=== PATIENT | female | born 1970 | race Caucasian/White ===

== ENCOUNTER 2025-01-19 11:40 | Emergency (ER) | payer OTHER, SELFPAY ==
--- OUTSIDE RECORDS SUMMARY | 2020-03-06 11:15 | XMS_ITS | Continuity of Care Document ---
Author Organization [facility] Address [address] [place] [address] Phone Care Team Providers Care Manager Water Name Role Phone Gee Wright MD Unavailable Unavailable Procedures Procedure Date INJECTION ANESTHETIC AND/OR STERIOD, TRANS EPIDURAL LUMB OR SACRAL,, SINGLE LEVE SURGICAL TRAY LOW OSMOLAR CONTRAST (200 TO 299 MG IODI NE) DEPO-MEDROL 80MG Advance Directives Directive Yes / No Effective Date File Name No Information Encounters Encounter Description Practice Location Reason(s) For Visit Diagnoses Date Provider Providers Copied on Encounter [facility], [address], [place], [place], [id number], [place] tel:[phone] [facility] No Information Kyle Flynn. [address] , [place], [place], [id number], [place]. tel:[phone] Referring Provider: Godfrey Nolasco DO, [address], [place], [address]. tel:[phone] Family History Family Member Type Diagnosis Age At Onset No Information Payers Payer name Insurance type Covered constitution party ID Authorbiancaa tiedwar(s) [facility] [id number] Social History Type Description Quantity Date Captured Comments Sex Female Smoking Status No Information Chief Complaint And Reason For Visit No Information Reason For Referral Reason For Referral No Information History Of Present Illness Encounter Date Complaint History Of Prese nt Illness No Information Functional Status Date Functional Assessmen t No Information Instructions Date Instruction Additional Infor mation No Information Assessments Type Assessment Date No Information Patient Care Teams Name Effective Dates (start - stop) Status Members No Information
--- OUTSIDE RECORDS SUMMARY | 2023-10-07 16:30 | XMS_ITS ---
Author Organization [facility] ([address]) Address [address] [place] [address] Care Team Providers Care Fiber Optic Central Office Installer Name Role Phone Nubia Burton Primary Care Provider Unavailab le Hannah Dickson Unavailable [phone] ZZ-Migration, Provider Unavailable Unavailab le Allergies Allergen (clinical drug ingredient) Drug/Non Drug Allergy documented on EMR Reaction Allergy Type Onset Date Status hydrocodone HYDRO-CODONE (uncoded) same as above Allergy Active TYLENOL WITH CODEINE (uncoded) same as above Allergy Active acetaminophen / oxycodone Percocet red rash, severe itching Drug Allergy Active tramadol traMADol same as above Drug Allergy Act rodger REASON FOR VISIT [facility] Conversion Encounter Medications Medication SIG (Take, Route, Frequency, Duration) Notes Start Date End Date Status NEBULIZER SET UP -ADULT *Please review for potential replacement for e-prescription and drug interaction check* Active predniSONE 20 MG call md for instructions orally Call MD for frequency; Duration: 30 day(s) Active NASAL WASHES N/A DIRECTED INTRANASALLY NEEDED; Duration: 90 DAYS *Please review for potential replacement for e-prescription and drug interaction check* Active EpiPen 2-Case 0.3 MG/0.3ML 0.3 mg intramuscularly once; Duration: 1 dose(s) Active PROAIR HFA 90 MCG/INH 2 PUFF(S) INHALED 4 TIMES A DAY *Please review for potential replacement for e-prescription and drug interaction check* Active Ipratropium [place] 0.06 % 2 spray(s) intranasally 4 times a day Active Azelastine HCl 137 MCG/SPRAY 2 spray(s) intranasally 2 times a day; Duration: 90 days Not-Taking Advair HFA 230-21 MCG/ACT 2 puff(s) inhaled 2 times a day; Duration: 90 days Active Singulair 10 MG 1 tab(s) orally once a day; Duration: 90 days Active Advair Diskus 500 MCG-50 MCG 1 PUFF(S) INHALED 2 TIMES A DAY *Please review and pick correct strength-formulat ion from [facility] options. If intended option is not shown, discontinue and re-order from Quick Search* Not-Taking Encounters Encounter Location Date Provider Diagnosis KEVIN Santana [address] [place] [address] [place] [address] 10/07/2023 Provider Yamini Moderate persistent asthma, uncomplicated J45.40 ; Allergic rhinitis due to pollen J30.1 and Bee allergy status Z91.030 Assessments Encounter Date Diagnosis (ICD Code) Assessment Notes Treatment Notes Treatment Clinical Notes Section Notes 10/07/2023 Moderate persistent asthma, uncomplicated (ICD-10 - J45.40) 10/07/2023 Allergic rhinitis due to pollen (ICD-10 - J30.1) 10/07/2023 Bee allergy status (ICD-10 - Z91.030) Plan Of Treatment Medication Medication Name Sig Start Date Stop Date Notes NEBULIZER SET UP -ADULT *Please review f or potential replacement for e-prescription and drug interaction check* predniSONE 20 MG call md for instruct ions orally Call MD for frequency; Duration: 30 day(s) NASAL WASHES N/A DIRECTED INTRANAS ALLY NEEDED; Duration: 90 DAYS *Please review for potential replacement for e-prescription and drug interaction check* EpiPen 2-Case 0.3 MG/0.3ML 0.3 mg intramuscularly once; Duration: 1 dose(s) PROAIR HFA 90 MCG/INH 2 PUFF(S) INHALED 4 TIMES A DAY *Please review for potential replacement for e-prescription and drug interaction check* Ipratropium [place] 0.06 % 2 spray(s) intranasally 4 times a day Advair HFA 230-21 MCG/ACT 2 puff(s) inhaled 2 times a day; Duration: 90 days Singulair 10 MG 1 tab(s) orally once a day; Duration: 90 days Progress Notes * Carlos WALLACE EDOB:1970 (54 yo F)Acc No.[id number]:10/07/2023 Patient: Carlos CANTRELL Provider: Kymberly Martinez :1970 A ge:53 Y S ex:Female Date:10/07/2023 Address:[address] [place], [place] [id number] Pcp:Nubia Burton Subjective: * Chief Complaints: * 1 . [facility] To [facility] Conversion Encounter. * Medical History: * Medications: N ot-Taking/PRN Advair Diskus 500 MCG-50 MCG POWDER 1 PUFF(S) INHALED 2 TIMES A DAY , Notes to Pharmacist: *Please review and pick [facility]. If intended option is not shown, discontinue and re-order from Quick Search*, Not-Taking/PRN Azelastine HCl 137 MCG/SPRAY Solution 2 spray(s) intranasally 2 times a day * Allergies: P ercocet: red rash, severe itching, traMADol: same as above, HYDRO-CODONE: same as above, TYLENOL WITH CODEINE: same as above. Objective: * Vitals: Assessment: * Assessment: 1. M oderate persistent asthma, uncomplicated - J45.40 (Primary) 2 . A llergic rhinitis due to pollen - J30.1 3 . B ee allergy status - Z91.030 ? Plan: * Treatment: 2. A llergic rhinitis due to pollen Start NASAL WASHES 1 QUART OF STERILIZED TAP WATER OR DISTILLED WATER, 1 TSP NACL, 1 PINCH OF BAKING SODA, N/A, DIRECTED, INTRANASALLY, NEEDED, 90 DAYS, 3, Refills 0, Notes to Pharmacist: *Please review for potential replacement for e-prescription and drug interaction check*; C ontinue Ipratropium [place] Solution, 0.06 %, 2 spray(s), intranasally, 4 times a day. 3. B ee allergy status Start EpiPen 2-Case Solution Auto-injector, 0.3 MG/0.3ML, 0.3 mg, intramuscularly, once, 1 dose(s), 1, Refills 0. * Billing Information: * Visit Code: * Procedure Codes: * Electronic signature of Prov edisr ZZ-Migration on 01/19/2025 at 11:44 AM CDT Sign off status: Pending * Provider: Kymberly deluca Migration Date: 0 10/07/2023 Generated for Christoph cortés/Mary Kay/John on: 0 01/19/2025 11:44 AM CDT
--- OUTSIDE RECORDS SUMMARY | 2025-01-19 11:44 | XMS_ITS | Clinical Summary ---
Author Organization [facility] Address [facility] [place] [address] Care Team Providers Care Roller Skate Assembler Name Role Phone Teresita Delacruz Primary Care Provider [phone] Allergies Active Allergy Reactions Criticality Noted Date Comments Bee Venom Anaphylaxis High 02/08/2020 Cinnamon Anaphylaxis High 02/08/2020 Iodine Rash,Swelling Low 03/29/2017 Oxycodone Rash,Swelling Low 03/29/2017 Allergy to percocet Strawberries Rash Medium 02/08/2020 Tramadol Rash,Itching Low 11/16/2020 Medications PARoxetine (PAXIL) 10 MG tablet 05/18/2022 Active isosorbide mononitrate ER (IMDUR) 30 MG 24 hr tablet Take 1 tablet (30 mg total) by mouth daily. 04/10/2023 Active ASPIRIN LOW DOSE 81 MG tablet Take 1 tablet (81 mg total) by mouth daily. 01/25/2023 Active famotidine (PEPCID) 20 MG tablet Take 1 tablet (20 mg total) by mouth 2 (two) times daily. 15 tablet 04/16/2024 Active Active Problems No known active problems Immunizations Immunization Administration Dates Next Due Dtap (Acel-Immune) 09/22/2016 H1N1 Intranasal 2009 Influenza 02/24/2009 Hepatitis A (Havrix 1440 El.U) 06/30/2016 Hepatitis B (Generic: Adult) 07/23/2010,08/29/19 10,2009 Influenza (Generic) 07/23/2010 MMR (MMRII) 08/28/2009,2009,10/10/1972 Pneumococcal (Pneumovax 23) 09/30/2011 Tdap (Generic) 07/20/2009 Typhoid (Typhim ) 07/04/2016 Family History Medical History Relation Comments Heart Disease Father Stroke Father Cancer Mother Relation Status Comments Brother Alive Daughter Alive Father Alive Mother Alive non hodgkins lym phoma Son Alive Social History Tobacco Use Types Packs/Day Years Used Date Smoking Tobacco: Never Smokeless Tobacco: Never Tobacco Cessation:Counseling Given: No Alcohol Use Standard Drinks/Week Comments Yes 0 (1 standard drink = 0.6 oz pur e alcohol) infrequent glass of wine Comments No Sex and Gender Information Value Date Recorded Sex Assigned at Not on file Legal Sex Female 7:35 PM CDT Gender Identity Not on file Sexual Orientation Not on file Last Filed Vital Signs Vital Sign Reading Time Taken Comments Blood Pressure 150/88 04/17/2024 12:36 AM LABORER PIPELINE Pulse 88 04/17/2024 12:36 AM LABORER PIPELINE Temperature 36.1 C (96.9 F) 04/17/2024 12:36 AM LABORER PIPELINE Respiratory Rate 18 04/17/2024 12:36 AM LABORER PIPELINE Oxygen Saturation 100% 04/17/2024 12:36 AM LABORER PIPELINE Inhaled Oxygen Concentration - - Weight 89.4 kg (197 lb) 04/16/2024 10:20 PM LABORER PIPELINE Height 180.3 cm (5' 11) 04/16/2024 10:20 PM LABORER PIPELINE Body Mass Index 27.48 04/16/2024 10:20 PM LABORER PIPELINE Plan of Treatment Health Maintenance Due Date Last Done Comments Colorectal Cancer Screening Colonoscopy (10 Years) 1971 Annual Physical 07/28/1974 Hepatitis C 07/28/1989 Pneumococcal Vaccine: 50+ Years (2 of 2 - PCV) 07/28/2021 09/30/2011 Zoster Vaccines (1 of 2) 07/28/2021 PHQ-2 (Physician Navajo) 04/24/2024 COVID-19 Vaccine (1 - 2023-2 5 season) 2024 Mammogram Screening 10/16/2025 10/17/2023 DTaP, Tdap and Td Vaccines ( 3 - Td or Tdap) 09/22/2026 09/22/2016, 07/20/2009 Hepatitis B Vaccines Completed 07/23/2010, 08/28/2009, 2009 Meningococcal B Vaccine Aged Out No l onger eligible based on patient's age to complete this topic Meningococcal Vaccine Aged Out No kings nehemiah eligible based on patient's age to complete this topic RSV Immunizations Under 20 Months Aged Out No longer eligible b ased on patient's age to complete this topic Insurance [facility] Care Teams Roller Skate Assembler Relationship Specialty Start Date End Date Teresita Delacruz PA [address] [place] [address] PCP - General FAMILY PRACTICE 06/17/19
--- OUTSIDE RECORDS SUMMARY | 2025-01-19 11:44 | XMS_ITS | Encounter Summary ---
Author Organization [facility] Address [address] [place] [address] Care Team Providers Care Green Pipefitter Name Role Phone Stanislav Montalvo MD Unavailable [phone] Arturo Gross MD Unavailable [phone] Dinorah Jason Primary Care Provider [phone] Alexandru Archuleta MD Unavailable [phone] Encounter Details Date Type Department Care Team (Latest Contact Info) Description 11/24/2024 Results Follow-Up [facility] [place] [place] [facility] [address] [place] [address] [place] [address] [place] [address] Dexa Axial Skeleton Bone Density 1 or 2 Site Social History Tobacco Use Types Packs/Day Years Used Date Smoking Tobacco: Never Smokeless Tobacco: Never Alcohol Use Standard Drinks/Week Comments Yes 0 (1 standard drink = 0.6 oz pur e alcohol) [facility] Utilities Answer Date Recorded In the past 12 months has Alek[employer], gas, oil, or water [email or web address] threatened to shut off services in your home? No 09/05/2024 Social Connection and Isolation Panel Answer Date Recorded In a typical week, how many times do you talk on the phone with family, friends, or neighbors? More than three times a week 09/05/2024 How often do you get togethe r with friends or relatives? More than three times a week 09/05/2024 How often do you attend chur ch or quaker services? Never 09/05/2024 Do you belong to any clubs o r organizations such as worship groups, unions, fraternal or athletic groups, or school groups? No 09/05/2024 How often do you attend meet ings of the clubs or organizations you belong to? Never 09/05/2024 Are you , , di vorced, , never , or living with a partner? Living with partner 09/05/2024 AUDIT-C Answer Date Recorded Q1: How often do you have a drink containing alc ohol? Monthly or less 10/11/2022 Q2: How many drinks containi ng alcohol do you have on a typical day when you are drinking? 1 or 2 10/11/2022 Q3: How often do you have si x or more drinks on one occasion? Never 10/11/2022 Overall Financial Resource Strain (CARDIA) Answe r Date Recorded How hard is it for you to pa y for the very basics like food, housing, medical care, and heating? Not very hard 09/05/2024 PHQ-2 Answer Date Recorded PHQ-2 Total Score (If total score is 3 or more points, staff should administer the PHQ-9) 0 11/15/2024 Hunger Vital Sign Answer Date Recorded Within the past 12 months, y ou worried that your food would run out before you got the money to buy more. Never true 09/06/19 Within the past 12 months, t he food you bought just didn't last and you didn't have money to get more. Never true 09/05/2024 PRAPARE - Transportation Answer Date Re corded In the past 12 months, has l ack of transportation kept you from medical appointments or from getting medications? No 08/22 In the past 12 months, has l ack of transportation kept you from meetings, work, or from getting things needed for daily living? No 09/05/2024 Housing Stability Vital Sign Answer Chago e Recorded In the last 12 months, was t here a time when you were not able to pay the mortgage or rent on time? No 01/25/2023 In the last 12 months, how many places have you lived? 1 01/25/2023 In the last 12 months, was t here a time when you did not have a steady place to sleep or slept in a detention (including now)? No 01/25/2023 PHQ-9 Answer Date Recorded PHQ-9 Total Score 11 09/23/2024 Housing Stability Vital Sign Answer Chago e Recorded In the last 12 months, was t here a time when you were not able to pay the mortgage or rent on time? No 09/05/2024 In the past 12 months, how m any times have you moved where you were living? 0 09/05/2024 At any time in the past [address] [facility], were you homeless or living in a detention (including now)? No 09/05/2024 Personal Safety Answer Date Recorded Have you ever been in or are you currently in a harmful physical or emotional relationship or is someone making you feel afraid or unsafe? 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 Not on file Not on [employer] de[employer] Not on file Not on file No t on file documented as of this encounter Plan of Treatment Not on file documented as of this encounter Visit Diagnoses Not on filedocumented in this encounter Care Teams Green Pipefitter Relationship Specialty Start Date End Date Dinorah Jason PA [address] [place] [address] PCP - General Family Medicine 08/19/24 Stanislav Montalvo MD [address] [place] [address] Consulting Physician Family Medicine 05/08/20 Arturo Gross MD [address] [place] [address] Consulting Physician Cardiovascular Disease 01/25/23 Alexandru Archuleta MD [address] [place] [address] Consulting Physician Rheumatology 01/07/25 documented as of this encounter
--- OUTSIDE RECORDS SUMMARY | 2025-01-19 11:44 | XMS_ITS | Clinical Summary ---
Author Organization [facility] Address [address] [place] [address] Care Team Providers Care Mainspring Winder And Oiler Name Role Phone Haresh Vicente MD, Alfie Fang Primary Care Pr ovider Source Comments [facility],non-owned Affiliates and Associated Physician Practices is amultiple site organization consisting of ambulatory clinics and hospital sitesin [place], [place] and [place]. This disclosure is being madepursuant to the Care Everywhere program and may not contain all information available regarding this patient. Last updated 18.[facility] [email or web address] Allergies Active Allergy Reactions Criticality Noted Date Comments Cinnamon Anaphylaxis High 09/05/2024 Hydrocodone Itching Medium 09/05/2024 Oxycodone-Acetaminophen Itching High 09/05/2024 Medications * Be aware that medications may not be up to date on this document. Alwaysverify current medications with the patient. gabapentin (Neurontin) 300 MG capsule Take 1 (one) capsule by mouth at bedtime Active PARoxetine (Paxil) 40 MG tablet Take 1 (one) tablet by mouth at bedtime Active omeprazole EC (PriLOSEC OTC) 20 MG tablet Take 1 (one) tablet by mouth every morning Active Active Problems Problem Noted Date Diagnosed Date Other fatigue 09/06/2024 Recent skin changes 09/06/2024 Headache, unspecified headache type 09/05/2024 Primary hypertension 09/05/2024 Anxiety 09/05/2024 GERD (gastroesophageal reflux disease) Vitamin D deficiency 09/05/2024 History of CVA with residual deficit 09/05/2024 History of deep vein thrombosis (DVT) during pre gnancy 09/05/2024 Social History Tobacco Use Types Packs/Day Years Used Date Smoking Tobacco: Never Smokeless Tobacco: Never Tobacco Cessation:Counseling Given: Not Answered Alcohol Use Standard Drinks/Week Comments Yes 1 (1 standard drink = 0.6 oz pure alcohol) 1-2 glasses of moscato; once or twice a month AUDIT-C Answer Date Recorded Q1: How often do you have a drink containing alc ohol? 2-4 times a month 09/05/2024 Q2: How many drinks containi ng alcohol do you have on a typical day when you are drinking? 1 or 2 09/05/2024 Q3: How often do you have si x or more drinks on one occasion? Never 09/05/2024 Overall Financial Resource Strain (CARDIA) Answe r Date Recorded How hard is it for you to pa y for the very basics like food, housing, medical care, and heating? Not hard at all 09/05/2024 [facility] - Occupational Stress Questionnaire Answer Date Recorded Do you feel stress - tense, restless, nervous, or anxious, or unable to sleep at night because your mind is troubled all the time - these days? Not at all 09/05/2024 Hunger Vital Sign Answer Date Recorded Within the past 12 months, y ou worried that your food would run out before you got the money to buy more. Never true 09/06/19 25 Within the past 12 months, t he [...] any time in the past 12 m [facility], were you homeless or living in a mcc (including now)? No 09/05/2024 Comments Unknown Sex and Gender Information Value Date Recorded Sex Assigned at Not on file Legal Sex Female 7:53 AM OPENER TENDER Gender Identity Not on file Sexual Orientation Not on file Last Filed Vital Signs Vital Sign Reading Time Taken Comments Blood Pressure 128/74 09/08/2024 1:36 PM CDT Pulse 74 09/08/2024 1:36 PM CDT Temperature 36.8 C (98.2 F) 09/08/2024 1:36 PM CDT Respiratory Rate 18 09/08/2024 1:36 PM CDT Oxygen Saturation 96% 09/08/2024 1:36 PM CDT Inhaled Oxygen Concentration - - Weight 106.3 kg (234 lb 5.6 oz) 09/07/2024 1:00 PM CDT Height 177.8 cm (5' 10) 09/07/2024 1:00 PM CDT Body Mass Index 33.63 09/07/2024 1:00 PM CDT Plan of Treatment Health Maintenance Due Date Last Done Comments COLOGUARD (AGES 45-75) - COL ON CA SCREENING 1970 COLON MONITORING 1971 COLONOSCOPY - COLON CA SCREENING 1971 CT COLONOGRAPHY - COLON CA SCREENING 1970 Colorectal Cancer Screening 1970 FIT - COLON CA SCREENING 1971 FLEX SIG - COLON CA SCREENING 1971 LIPID TESTING 1970 HIV SCREENING 07/28/1986 HEPATITIS C SCREENING 07/24/1989 DTAP/TDAP/TD VACCINES (1 - Tdap) 07/28/1990 HEPATITIS B VACCINE (1 of 3 - 19+ 3-dose series) 07/28/1990 PNEUMOCOCCAL VACCINE 50+ (1 of 1 - PCV) 07/28/2021 ZOSTER VACCINE (1 of 2) 07/28/2021 DEPRESSION SCREENING 04/24/2024 COVID-19 VACCINE (1 - 2023-2 5 season) 2024 INFLUENZA VACCINE (#1) 2024 07/23/2010 MAMMOGRAM 10/16/2025 10/17/2023, 10/17/2023 HIB VACCINE Aged Out No longer eligi ble based on patient's age to complete this topic HPV VACCINE Aged Out No longer eligi ble based on patient's age to complete this topic MENINGOCOCCAL (Group B) VACCINE SHARED DECISION-MAKING Aged Out No longer eligible based on patient's age to complete this topic MENINGOCOCCAL GROUPS A/C/Y/W VACCINE Aged Out No longer eligible b ased on patient's age to complete this topic Insurance [facility] Advance Directives * Full Code (Latest Code Status on File) Date Activated Date Inactivated Comments 09/05/2024 10:28 PM 09/08/2024 5:24 PM Care Teams Mainspring Winder And Oiler Relationship Specialty Start Date End Date Alfie Hutson Jr., MD [address] [address] PCP - General 12/22/08
--- OUTSIDE RECORDS SUMMARY | 2025-01-19 11:44 | XMS_ITS | Encounter Summary ---
Author Organization [facility] Address [address] [place] [address] Care Team Providers Care Sander Wooden Pencils Name Role Phone Teresita Delacruz Primary Care Provider [phone] Encounter Details Date Type Department Care Team (Latest Contact Info) Description 02/27/2018 Abstract [facility] , Mathew Birmingham MD Social History Tobacco Use Types Packs/Day Years Used Date Smoking Tobacco: Never Smokeless Tobacco: Never Alcohol Use Standard Drinks/Week Comments No 0 (1 standard drink = 0.6 oz pur e alcohol) infrequent glass of wine Comments No Sex and Gender Information Value Date Recorded Sex Assigned at Not on file Legal Sex Female 7:35 PM CDT Gender Identity Not on file Sexual Orientation Not on file documented as of this encounter Plan of Treatment Not on file documented as of this encounter Visit Diagnoses Not on filedocumented in this encounter Additional Health Concerns Infection Onset Date Last Indicated Resolved Time COVID-19 Rule Out 04/16/2024 04/16/2024 04/16/2024 11:10 PM COTTON CLASSER AIDE RSV 04/16/2024 04/16/2024 04/26/2024 12:3 3 AM COTTON CLASSER AIDE documented as of this encounter Care Teams Sander Wooden Pencils Relationship Specialty Start Date End Date Teresita Delacruz PA [address] [place] [address] PCP - General FAMILY PRACTICE 06/17/19 documented as of this encounter
--- OUTSIDE RECORDS SUMMARY | 2025-01-19 11:44 | XMS_ITS | Encounter Summary ---
Author Organization [facility] Address [address] [place] [id number] Care Team Providers Care Trackmobile Operator Name Role Phone Teresita Delacruz Primary Care Provider [phone] Encounter Details Date Type Department Care Team (Late st Contact Info) Description 04/18/2024 [employer]Streaming Message [employer] [facility] [employer] [address] [place] [address] Marjorie, [facility] Provider Photograph of updated Photo ID Social History Tobacco Use Types Packs/Day Years [...] Infection Onset Date Last Indicated Resolved Time RSV 04/16/2024 04/16/2024 04/26/2024 12:3 3 AM AUTOMOTIVE WINDOW T[employer] documented as of this encounter Care Teams Trackmobile Operator Relationship Specialty Start Date End Date Teresita Delacruz PA [address] [place] [address] PCP - General FAMILY PRACTICE 06/17/19 documented as of this encounter
--- OUTSIDE RECORDS SUMMARY | 2025-01-19 11:44 | XMS_ITS | Patient Health Record ---
Author Organization [facility] [employer] [place] ([address]) Address [address] [place] [address] Care Team Providers Care Precipitator Name Role Phone Nubia Burton Primary Care Provider Unavailab Hannah Stuart Unavailable [phone] Allergies Allergen (clinical drug ingredient) Drug/Non Drug Allergy documented on EMR Reaction Allergy Type Onset Date Status hydrocodone HYDRO-CODONE (uncoded) same as above Allergy Active TYLENOL WITH CODEINE (uncoded) same as above Allergy Active acetaminophen / oxycodone Percocet red rash, severe itching Drug Allergy Active tramadol traMADol same as above Drug Allergy Act rodger Reason For Referral No Information Medications Medication SIG (Take, Route, Frequency, Duration) Notes Start Date End Date Status EPIPEN 2-CASE 0.3 mg 0.3 mg intramuscularly once; Duration: 1 dose(s) Active PREDNISONE 20 mg call md for instructions orally Call MD for frequency; Duration: 30 day(s) Active EpiPen 2-Case 0.3 MG/0.3ML 0.3 mg intramuscularly once; Duration: 1 dose(s) Active SINGULAIR 10 mg 1 tab(s) orally once a day; Duration: 90 days Active ADVAIR DISKUS 500 mcg-50 mcg 1 puff(s) inhaled 2 times a day Not-Taking IPRATROPIUM NASAL 42 mcg/inh 2 spray(s) intranasally 4 times a day Active Ipratropium Iuka 0.06 % 2 spray(s) intranasally 4 times a day Active AZELASTINE HYDROCHLORIDE NASAL 137 mcg/inh 2 spray(s) intranasally 2 times a day; Duration: 90 days Not-Taking ADVAIR HFA CFC free 230 mcg-21 mcg/inh 2 puff(s) inhaled 2 times a day; Duration: 90 days Active NEBULIZER SET UP -ADULT *Please review for potential replacement for e-prescription and drug interaction check* Active predniSONE 20 MG call md for instructions orally Call MD for frequency; Duration: 30 day(s) Active NASAL WASHES N/A DIRECTED INTRANASALLY NEEDED; Duration: 90 DAYS *Please review for potential replacement for e-prescription and drug interaction check* Active Azelastine HCl 137 MCG/SPRAY 2 spray(s) intranasally 2 times a day; Duration: 90 days Not-Taking Advair HFA 230-21 MCG/ACT 2 puff(s) inhaled 2 times a day; Duration: 90 days Active Singulair 10 MG 1 tab(s) orally once a day; Duration: 90 days Active PROAIR HFA 90 MCG/INH 2 PUFF(S) INHALED 4 TIMES A DAY *Please review for potential replacement for e-prescription and drug interaction check* Active Advair Diskus 500 MCG-50 MCG 1 PUFF(S) INHALED 2 TIMES A DAY *Please review and pick correct strength-formula tion from [employer] options. If intended option is not shown, discontinue and re-order from Quick Search* Not-Taking Immunizations Vaccine Route Administration Date Status Comme nts Hepatitis B (20 and more) Unknown 12/07/2011 Administer ed Portal Information Allergy Immunotherapy Weekly Unknown 09/22/2004 Administered Portal Informati on Hepatitis A Unknown 07/05/2016 Administered Portal Info rmation Influenza Unknown 02/11/2016 Administered Portal Infor mation Social History Tobacco Use: Social History Observation Description Date Details (start date - stop date) Never Smoker NA - NA Smoking Smart Form: Question Answer Notes Are you a: never smoker Problems Problem Type SNOMED Code ICD Code Onset Dates Problem Status W/U Status Risk Notes Problem Chronic allergic conjunctivitis (00205938) Other chronic allergic conjunctivitis (H10.45) Active confirmed Problem Allergic rhinitis caused by pollen (disorder) (74331779) Allergic rhinitis due to pollen (J30.1) Active confirmed Problem Allergic rhinitis (69967129) Other allergic rhinitis (J30.89) Active confirmed Problem Uncomplicated moderate persistent asthma (287146432) Moderate persistent asthma, uncomplicated (J45.40) Active confirmed Problem Allergic rhinitis caused by animal hair and dander (996762059673321) Allergic rhinitis due to animal (cat) (dog) hair and dander (J30.81) Active confirmed Problem Cough (30272840) Cough (R05) Active confirmed Problem Allergy to bee venom (399547498) Bee allergy status (Z91.030) Active confirmed Plan Of Treatment No Information Insurance Providers Payer Name Payer Address Payer Phone Subscriber Number Group Number Insured Name Patient Relationship to Insured Coverage Start Date Coverage End Date [facility] [employer] Claims [address] [place] [address] [phone] [id number] Cyril Flores i Spouse - patient is the spouse of the insured Medical (General) History Medical History History ICD Code Moderate persistent asthma, uncomplicate d J45.40 Allergic rhinitis due to pollen J30.1 Allergic rhinitis due to animal (cat) (d og) hair and dander J30.81 Other allergic rhinitis J30.89 Surgical History Surgery Date(Month/Year) blood clot wrist 02/22/1999 Partial Hysterectomy 02/29/2000 neck fusion 04/24/2006 Facial Surgery/cancer 11/22/2008 Xiphoid area/removed small cancer mass 1 Hospitalization History Reason Date(Month/Year) Asthma exacerbation 09/30/2011 2nd 12/23/1998
--- OUTSIDE RECORDS SUMMARY | 2025-01-19 11:44 | XMS_ITS ---
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 Cervical spondylosis 06/26/2023 Assessment & Plan (09/26/2023 11:55 AM CDT): Improved after receiving injection from Neurosurgery. Continue gabapentin as prescribed. Left ventricular hypertrophy 06/26/2023 Osteoarthritis of knee 06/26/2023 Other seborrheic keratosis 06/26/2023 Uncontrolled hypertension 01/24/2023 Assessment & Plan (08/06/2024 9:52 AM CDT): Orders: losartan-hydroCHLOROthiazide (Hyzaar) 50-12.5 mg per tablet; Take 1 tablet by mouth 2 (two) times a day CBC with auto differential; Future Comprehensive metabolic panel; Future Lipid panel; Future Albumin Creatinine Ratio, Urine; Future Assessment & Plan (04/18/2024 2:31 PM BAG BUNDLER): Chronic, not well-controlled. Patient reports home blood pressure readings has been improved since her losartan/hydrochlorothiazide dose was adjusted. Currently elevated due to illness and recent steroids. Recommend close monitoring, patient will continue home tracking and send us back readings. Assessment & Plan (03/19/2024 8:45 AM BAG BUNDLER): Chronic and uncontrolled. Will add hydrochlorothiazide and switch to twice daily dosing. Now take losartan/hydrochlorothiazide 50/12.5 mg b.i.d.. Side effects discussed. Patient will reach out in 2 weeks with an update on her blood pressure readings. If still elevated will need to add a third agent. She will reach out sooner with any significantly worsening readings or symptoms. Continue to work on healthy low-salt diet. Exercise as tolerated. Patient voiced agreement with this plan. All questions answered today. Schwannoma of nerve of lower extremity 0 Assessment & Plan (05/11/2020 9:08 AM BAG BUNDLER): Patient is seeing Dr. Nolasco (in [place]). Continue follow-up as directed. Continue current management. Assessment & Plan (02/02/2020 9:06 PM CDT): Patient complains of complete numbness and tingling and near paralysis occasionally. Recommend spine consultation. Numbness and tingling of left leg 12/30/2019 Assessment & Plan (02/02/2020 9:06 PM CDT): Schwannoma and disc protrusion noted L5-S1 to the left Assessment & Plan (12/30/2019 6:00 PM CDT): Multiple arthralgias. Numbness down her left leg. Positive low back pain. Recommend MRI. Greater trochanteric bursitis of right hip 12/13 Assessment & Plan (09/26/2023 11:56 AM CDT): Chronic. Continue to follow with orthopedics for injections. Starting physical therapy later this week. Assessment & Plan (05/11/2020 9:07 AM BAG BUNDLER): Continue current management as directed by Orthopedics. Assessment & Plan (12/30/2019 5:59 PM CDT): Had a steroid flare. However, she is improved. Unfortunately having increasing low back pain and now numbness and tingling down the left leg. States she just cannot feel her left leg at all. Assessment & Plan (12/14/2019 9:04 PM CDT): We discussed the risks, benefits and alternatives. Physician directed exercises are given. Continue with nonsteroidal anti-inflammatories. Steroid is injected to the greater trochanter. If this does not give her the relief that she is looking for consider an intra-articular injection into right hip either through pain management or radiology. Femoral acetabular impingement 11/09/2019 Assessment & Plan (12/30/2019 5:59 PM CDT): Positive impingement on exam. Medrol Dosepak, nonsteroidal anti-inflammatory Mobic 15 mg daily. MRI to the lumbar spine. Assessment & Plan (12/14/2019 9:04 PM CDT): Consider injection into the hip joint if greater trochanteric bursa injection does not give her the relief that she is looking for Assessment & Plan (11/09/2019 8:00 PM CDT): Patient has failed conservative therapy consisting of massage, icing, anti-inflammatories as well as narcotic pain medications. Recommend MR arthrogram of the right hip with pre and post provocative testing. Begin meloxicam 15 mg daily. If it does come back with labral tear consider consultation in [place] Mild intermittent asthma without complication Assessment & Plan (09/26/2023 11:56 AM CDT): Chronic and controlled. Patient has inhalers and Singulair which she uses as needed. Continue current management. Assessment & Plan (05/11/2020 9:08 AM BAG BUNDLER): Chronic and well controlled at this time. She has her inhalers to use in the springtime as needed. BMI 27.0-27.9,adult 06/21/2019 Assessment & Plan (05/11/2020 9:07 AM BAG BUNDLER): Reviewed BMI Focus on healthy diet options Work on healthy changes Patient will follow-up with me after seeing Gynecology, as needed, to discuss weight gain. Assessment & Plan (12/14/2019 9:04 PM CDT): We discussed the adverse effects of extra weight on osteoarthritis. The only thing proven to slow the progression of osteoarthritis as weight loss. Every 1 lb lost, relieves 4-6 lb of stress across the knee. Continue weight loss through diet and exercise. Consider low carbohydrate diet. Assessment & Plan (11/09/2019 8:01 PM CDT): We discussed the adverse effects of extra weight on osteoarthritis. The only thing proven to slow the progression of osteoarthritis as weight loss. Every 1 lb lost, relieves 4-6 lb of stress across the knee. Continue weight loss through diet and exercise. Consider low carbohydrate diet. Assessment & Plan (06/21/2019 10:55 AM BAG BUNDLER): BMI Follow-up includes: nutrition counseling and exercise counseling. Chronic right-sided low back pain without sciati ca 11/06/2018 Assessment & Plan (09/26/2023 12:00 PM CDT): Chronic. Followed by orthopedics. Continue with injections and physical therapy as scheduled. Update me with any changes. Assessment & Plan (11/06/2018 11:09 AM CDT): Discussed with patient that this is likely muscular strain. I advised [id number] NSAIDs and ice and heat for pain. I did give her back stretches she can perform at home. If her pain worsens or does not resolve she can return for further management. We can consider physical therapy in the future. Chronic cervical pain 11/06/2018 Overview (11/06/2018): Cervical fusion in 2006 C4-C5 and C5-C6 Assessment & Plan (11/06/2018 11:07 AM CDT): This is stable. Continue current [id number] NSAIDs. Routine adult health maintenance 11/05/2018 Overview (10/24/2023): Health Maintenance: -PCV20: N/A -Tdap vaccine: 2017 -Influenza vaccine: due in Fall -Shingles vaccine: due -Cologuard: 09/2023 -Last WWE: s/p hyst -Last Mammogram: 10/17/23 -Last DEXA: N/A -Last eye exam: N/A -Last MHA: N/A Assessment & Plan (09/26/2023 11:57 AM CDT): Health Maintenance: -PCV20: N/A -Tdap vaccine: 2017 -Influenza vaccine: due in Fall -Shingles vaccine: due -Cologuard: ordered -Last WWE: s/p hyst -Last Mammogram: due, ordered -Last DEXA: N/A -Last eye exam: N/A -Last MHA: N/A Patient due for mammogram and Cologuard, orders placed. Recommend Shingrix, she declined today. Annual labs ordered. Work on healthy diet and exercise habits. Assessment & Plan (05/11/2020 9:10 AM BAG BUNDLER): Health Maintenance: -PCV13 vaccine: N/A -PPSV23 vaccine: N/A -Tdap vaccine: 2017 -Influenza vaccine: due -Shingles vaccine: N/A -Colonoscopy: N/A -Last WWE: 1999 had a partial hysterectomy, scheduled 05/14/20 for WWE -Last Mammogram: due, ordered -Last DEXA: N/A -Last eye exam: N/A -Last MHA: N/A Patient is due for mammogram, this was ordered today. She has a well-woman exam scheduled for this week. She is due for flu shot. Continue with healthy lifestyle and dietary habits. See me annually for routine physicals. Assessment & Plan (11/06/2018 8:17 AM CDT): Health Maintenance: -PCV13 vaccine: N/A -PPSV23 vaccine: N/A -Tdap vaccine: 2017 -Shingles vaccine: N/A -Colonoscopy: N/A -Last WWE: 1999 has a partial hysterectomy, 08/2018 had a pap -Last Mammogram: 2017 -Last DEXA: N/A -Last eye exam: 2015, glasses for distance -Last MHA: N/A Vitamin D deficiency 12/24/2010 Assessment & Plan (05/11/2020 9:09 AM BAG BUNDLER): Patient takes a multivitamin daily. She declines vitamin-D lab test today. Assessment & Plan (11/06/2018 11:06 AM CDT): Continue current management. History of CVA (cerebrovascular accident) 2010 Overview (11/06/2018): At age 31. Description: L hemiparesis, R facial weakness, slurred speech and decreased memory - associated severe headache; syncope. ? embolic - lasted less than 1 hour Assessment & Plan (11/06/2018 11:07 AM CDT): Patient reports her residual left-sided weakness is stable. Continue current management. Non-toxic multinodular goiter 12/23/2010 Assessment & Plan (09/26/2023 11:56 AM CDT): No prior records are available for review. Uncertain if patient was supposed to have follow-up imaging. Will check a TSH today and consider an ultrasound. Assessment & Plan (05/11/2020 9:09 AM BAG BUNDLER): Advised patient to call her histotechnician and find out when she is due for follow-up. Patient voiced understanding. Assessment & Plan (11/06/2018 11:07 AM CDT): Stable. Continue current management. Continue to follow up with endocrinology. Current Treatment and Therapy Plans No current plan information found. Past Treatment and Therapy Plans No past plan information found. Lifetime Dose Tracking * Chemical Lifetime Dose Automatic Entry Manual Entr y Fluoro Time 0.23 minutes 0.23 minutes 0 minutes Air kerma at the reference point (Ka,r) 0.4 mGy 0 .4 mGy 0 mGy Resolved Problems Problem Noted Date Diagnosed Date Resolved Date Abnormal findings on diagnos tic imaging of breast 06/26/2023 09/25/2023 Moderate persistent asthma 06/26/2023 0 09/25/2023 Chest pain, unspecified type 01/24/2023 09/25/2023 Trochanteric bursitis of right hip 12/01/2021 09/26/2023 Pelvic pain in female 12/11/20182019 Vaginal burning 11/06/2018 06/17/2019 Assessment & Plan (11/06/2018 11:12 AM CDT): I discussed with the patient that this can also be evaluated by Gynecology. However, if it is going to be several weeks before she can be seen, then she can make an appointment with me and I can do an exam to test for vaginitis. Patient voiced agreement with this plan. She will schedule an appointment with me if she needs to. Notalgia 10/08/2012 11/06/2018 Bronchial asthma 10/08/2012 06/17/2019 Assessment & Plan (11/06/2018 11:08 AM CDT): Stable. Continue current management. Return to office if she develops wheezing, shortness of breath, cough. Patient is going to call our office with the names of her inhalers so these can be entered into her chart. Abnormal blood chemistry level 12/23/2010 06/17/2019 Overview (08/03/2017): Description: thick blood - predisposition to thrombophlebitis
--- OUTSIDE RECORDS SUMMARY | 2025-01-19 11:45 | XMS_ITS | Clinical Summary ---
Author Organization [address] Address [address] [place] [id number] Care Team Providers Care Marketing Planner Name Role Phone Stanislav Montalvo MD Unavailable [phone] Arturo Gross MD Unavailable [phone] Dinorah Jason Primary Care Provider [phone] Alexandru Archuleta MD Unavailable [phone] Allergies Active Allergy Reactions Criticality Noted Date Comments Bee Venom Protein (Honey Bee) Anaphylaxis High 02/08/2020 Cinnamon Anaphylaxis High 02/08/2020 Insect Venom Anaphylaxis High 02/08/2020 Oxycodone Rash,Swelling Medium 03/29/2017 Allergy to percocet Oxycodone-Acetaminophen Unknown [place] Rash Medium 02/08/2020 Tramadol Venom-Honey Bee Anaphylaxis High 02/08/2020 Wasp Venom Protein Starter Kit Anaphylaxis High 02/08/2020 Medications omeprazole 20 mg tablet,delayed release (DR/EC) Take 1 tablet (20 mg total) by mouth daily Active losartan-hydroCHLO ROthiazide (Hyzaar) 50-12.5 mg per tabletIndications: Hypertension, essential Take 1 tablet by mouth 2 (two) times a day 180 tablet 3 08/07/19 Active Additional Information Patient taking differently:1 tablet oralDaily PRN, if BP remains above 150 systolic, Reported on 11/15/2024 cholecalciferol (VITAMIN D-3) 50,000 unit capsule Take 1 capsule (50,000 Units total) by mouth once a week 12 capsule 08/09/19 25 Active gabapentin (NEURONTIN) 300 mg capsule Take 1 capsule (300 mg total) by mouth nightly Active cyanocobalamin (Vitamin B-12) 1,000 mcg tabletIndications: Prevention of Vitamin B12 Deficiency Take 1 tablet (1,000 mcg total) by mouth daily Active hydrocortisone (CORTEF) 10 mg tablet Take 1 tablet (10 mg total) by mouth 2 (two) times a day 60 tablet 5 09/11/19 25 025 Active ondansetron ODT (ZOFRAN-ODT) 4 mg disintegrating tabletIndications: Nausea Take 1 tablet (4 mg total) by mouth every 8 (eight) hours as needed for nausea or vomiting 20 tablet 1 09/24/19 25 Active tiZANidine (ZANAFLEX) 4 mg tablet TAKE 1 TABLET(4 MG) BY MOUTH EVERY NIGHT NEEDED FOR MUSCLE SPASMS 30 tablet 1 10/23/19 25 Active celecoxib (CeleBREX) 200 mg capsuleIndications :Polyarthralgia,Ac [place] pain of both knees,Acute bilateral ankle pain TAKE 1 CAPSULE(200 MG) BY MOUTH DAILY WITH DINNER 90 capsule 12/19/19 25 Active Active Problems Problem Noted Date Diagnosed Date 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 Patient reports home blood pressure readings has been improved since her losartan/hydrochlorothiazide dose was adjusted. Currently elevated due to illness and recent steroids. Recommend close monitoring, patient will continue home tracking and send us back readings. Assessment & Plan (03/19/2024 8:45 AM SHADOWGRAPH OPERATOR): Chronic and uncontrolled. Will add hydrochlorothiazide and [...] today. Schwannoma of nerve of lower extremity Assessment & Plan (05/11/2020 9:08 AM SHADOWGRAPH OPERATOR): Patient is seeing Dr. Nolasco (in [place]). Continue follow-up as directed. Continue current management. [...] week. Assessment & Plan (05/11/2020 9:07 AM SHADOWGRAPH OPERATOR): Continue current management as directed by Orthopedics. [...] back with labral tear consider consultation in [facility] Mild intermittent asthma without complication Assessment & Plan (09/26/2023 11:56 AM CDT): Chronic and controlled. Patient has inhalers and Singulair which she uses as needed. Continue current management. Assessment & Plan (05/11/2020 9:08 AM SHADOWGRAPH OPERATOR): Chronic and well controlled at this time. She has her inhalers to use in the springtime as needed. BMI 27.0-27.9,adult 06/21/2019 Assessment & Plan (05/11/2020 9:07 AM SHADOWGRAPH OPERATOR): Reviewed BMI Focus on healthy diet options [...] diet. Assessment & Plan (06/21/2019 10:55 AM SHADOWGRAPH OPERATOR): BMI Follow-up includes: nutrition counseling and exercise counseling. Chronic right-sided low back pain without sciati ca 11/06/2018 Assessment & Plan (09/26/2023 12:00 PM CDT): Chronic. Followed by orthopedics. Continue with injections and physical therapy as scheduled. Update me with any changes. Assessment & Plan (11/06/2018 11:09 AM CDT): Discussed with patient that this is likely muscular strain. I advised [id number] NSAIDs and ice and heat for pain. [...] AM CDT): This is stable. Continue current [id number] NSAIDs. Routine adult health maintenance 11/05/2018 Overview [...] habits. Assessment & Plan (05/11/2020 9:10 AM SHADOWGRAPH OPERATOR): Health Maintenance: -PCV13 vaccine: N/A -PPSV23 vaccine: [...] 12/24/2010 Assessment & Plan (05/11/2020 9:09 AM SHADOWGRAPH OPERATOR): Patient takes a multivitamin daily. She declines [...] ultrasound. Assessment & Plan (05/11/2020 9:09 AM SHADOWGRAPH OPERATOR): Advised patient to call her shot bagger and find out when she is due for follow-up. Patient voiced understanding. Assessment & Plan (11/06/2018 11:07 AM CDT): Stable. Continue current management. Continue to follow up with endocrinology. Resolved Problems Problem Noted Date Diagnosed Date [...] Description: thick blood - predisposition to thrombophlebitis Encounters Date Type Department Care Team Description 01/02/[address] [phone] Annmarie Condon 12/30/2024 Letter (Out) [facility] Family Medicine [address] [phone] 12/26/2024 3:00 PM CDT Office Visit [facility] Orthopedics and Sports Medicine [address] [facility] [address] [place] [phone] Nazario Kerr PA Patellofemoral pain syndrome of both knees (Primary Dx); Patellar tendinitis of both knees; Acute pain of both knees 11/24/2024 Results Follow-Up [facility] [address], [place] [address] Sarbjit Wilkerson MD Dexa Axial Skeleton Bone Density 1 or 2 Site 11/15/2024 10:56 AM CDT - 11/15/2024 11:59 PM CDT Hospital Encounter [facility] [address] [place] [address] Acute bilateral ankle pain; Acute pain of both knees Discharge Disposition: Discharge to home or self care 11/15/2024 10:[address] [facility] Lab [address] [place] [address] Polyarthralgia 11/15/2024 10:00 AM CDT Office Visit [facility] [address] [phone] Dinorah Jason PA Polyarthralgia (Primary Dx); Acute pain of both knees; Acute bilateral ankle pain; Chronic right hip pain; Plantar fasciitis, bilateral; Encounter for screening mammogram for malignant neoplasm of breast 11/15/2024 7:27 AM CDT - 11/15/2024 11:59 PM CDT Hospital Encounter [facility] Medical Office Bldg [facility] [address] [facility] [address] [place] [address] Current chronic use of systemic steroids Discharge Disposition: Discharge to home or self care 11/15/2024 Results Follow-Up [facility] [address] [phone] Dinorah Jason PA Rheumatoid factor, XR Knee Bilateral 3 Views, XR Ankle Right 3+ Vw, XR Ankle Left 3+ Vw from Last 3 Months Immunizations Immunization Administration Dates Next Due DTaP 09/22/2016 H1N1 Nasal 02/24/2009 Hep A, Adult 06/30/2016 Hep B Vaccine 07/23/2010,08/28/2009,2009 Influenza, Trivalent, Preser vative Free, Intramuscular 07/23/2010 Influenza, Unspecified 03/19/2024(Deferr ed: Patient Refused),01/22/2023(Deferred: Patient Refused),01/22/2023(Deferred: Patient Refused),01/22/2022(Deferred: Patient Refused),10/28/2021(Deferred: Patient Refused),01/22/2021(Deferred: Patient Refused),07/23/2010 MMR 08/28/2009,2009,10/10/1972 PPD TEST 08/20/2010,2009,07/20/2009 Pneumococcal Polysaccharide PPV23 09/30/2011 Tdap 07/20/2009 Typhoid Inactivated 07/04/2016 Surgical History Surgery Date Site/Laterality Comments OTHER SURGICAL HISTORY cervical spine herniated disks surgery PARTIAL HYSTERECTOMY was told a small piece of the cervix was left OOPHORECTOMY Right SALPINGECTOMY Right FOOT SURGERY 03/29/2018 fracture SKIN SURGERY 03/30/2018 mass removed from back WRIST SURGERY 01/22/1999 - 02/21/1999 blood clot FLUORO GUIDED INJECTION HIP RIGHT 01/04/2021 Right HYSTERECTOMY 02/2000 SPINE SURGERY 04/2006 cervical discectomy and anterior fusion ABDOMINAL SURGERY 01/2019 IR INJECTION ARTHROGRAM SI JOINT RIGHT INCLUDES IMAGING GUIDANCE 03/27/2024 Right IR INJECTION ARTHROGRAM SI JOINT LEFT INCLUDES IMAGING GUIDANCE 03/27/2024 Left Medical History Medical History Date Comments Hx Other Medical cervica . 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 H/o biopsies. F/u with Endocrinology every 5 years. History of CVA (cerebrovascu lar accident) 12/23/2010 At age 31. Description: L he miparesis, R facial weakness, slurred speech and decreased memory - associated severe headache; syncope. ? embolic - lasted less than 1 hour Chronic cervical pain 11/06/2018 Cervical f usion in 2006 C4-C5 and C5-C6 Bronchial asthma 10/08/2012 Abnormal blood chemistry level 12/23/2010 D escription: thick blood - predisposition to thrombophlebitis Basal cell carcinoma Maxillary sinus cancer (HCC) Pelvic pain in female 12/11/2018 Vaginal burning 11/06/2018 Mild intermittent asthma wit hout complication 10/07/2019 Muscle strain of right glute al region Labral tear of hip joint 11/29/2019 Right Lumbar spondylosis RSV (acute bronchiolitis due to respiratory syncytial virus) Renetta's syndrome Nikolai disease Family History Medical History Relation Name Comments Diabetes Brother Genaro Arthritis Father Thien Cardiomyopathy Father Thien Heart attack Father Thien Heart disease Father Thien Stroke Father Thien Arthritis Mother Soledad Cancer Mother Soledad Hypertension Mother Soledad Non-Hodgkin's Lymphoma Mother Soledad Thyroid disease Other Family histo ry of Thyroid disorder; Cardiomyopathy Paternal Grandmother Breast cancer Neg Hx Relation Name Status Comments Brother Genaro Alive Father Thien Alive Maternal Grandfather Maternal Grandmother Mother Soledad Alive Other Paternal Grandfather Paternal Grandmother Social History Tobacco Use Types Packs/Day Years Used Date Smoking Tobacco: Never Smokeless Tobacco: Never Tobacco Cessation:Counseling Given: Not Answered Alcohol Use Standard Drinks/Week Comments Yes 0 (1 standard drink = 0.6 oz pur e alcohol) [facility] Utilities Answer Date Recorded In the past 12 months has [employer], gas, oil, or water [employer] threatened to shut off services in your [...] often do you attend chur ch or baptism services? Never 09/05/2024 Do you belong to any clubs o r organizations such as roman catholic groups, unions, fraternal or athletic groups, or [...] place to sleep or slept in a long-term (including now)? No 01/25/2023 PHQ-9 Answer Date [...] any time in the past 12 m [facility], were you homeless or living in a long-term (including now)? No 09/05/2024 Personal Safety Answer Date Recorded Have you ever been in or are you currently in a harmful physical or emotional relationship or is someone making you feel afraid or unsafe? 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 Not on file Not on file Not on fi [employer] de[employer] Not on file Not on file No t on file Obstetrics History Para Term AB IAB SAB Ectopic Multiple Livin g Live Births 3 2 1 1 2 2 Date Outcome GA Total Labor Labor/2nd/3rd Weight Sex Type Anes PTL Meena A1 A5 Name Clin Para Para SAB Last Filed Vital Signs Vital Sign Reading Time Taken Comments Blood Pressure 124/88 11/15/2024 9:57 AM CDT Pulse 95 11/15/2024 9:57 AM CDT Temperature 36.2 C (97.1 F) 11/15/2024 9:57 AM CDT Respiratory Rate 16 11/15/2024 9:57 AM CDT Oxygen Saturation 98% 11/15/2024 9:57 AM CDT Inhaled Oxygen Concentration - - Weight 99.3 kg (219 lb) 12/26/2024 3:02 PM CDT Height 177.8 cm (5' 10) 12/26/2024 3:02 PM CDT Body Mass Index 31.42 12/26/2024 3:02 PM CDT Plan of Treatment Health Maintenance Due Date Last Done Comments Hepatitis C Screening 1970 Pneumococcal vaccine <65 (2 of 2 - PCV) 09/29/2012 09/30/2011 Zoster Vaccine (1 of 2) 07/28/2021 Regular Well Visit/Exam 18-64 09/25/2024, 05/14/2020, 05/11/2020, Additional history exists Breast Cancer Screening-Mammogram 10/16/2024 024 Covid-19 Vaccine (3 - 2024-2 6 season) 2024 02/01/2021, 01/11/2021 Influenza Vaccine (#1) 2024 07/23/2010, 2010 Depression Screening 11/15/2025 11/15/2024, 09/23/2024, 04/27/2023, Additional history exists DTaP/Tdap/Td Vaccine (3 - Td or Tdap) 09/22/2026 09/22/2016, 07/20/2009 Colon Cancer Screening-DNA Stool 09/29/2026 09/30/19 24 Hepatitis B Screening Completed 07/23/2010 , 08/28/2009, 2009 Procedures Procedure Name Priority Date/Time Associated Diagnosis Comments XR ANKLE LEFT 3 OR MORE VIEWS Schedule Routine, Read Routine (OP Routine) 11/15/2024 11:19 AM CDT Acute bilateral ankle pain XR KNEE BILATERAL 3 VIEWS Schedule Routine, Read Routine (OP Routine) 11/15/2024 11:19 AM CDT Acute pain of both knees XR ANKLE RIGHT 3 OR MORE VIEWS Schedule Routine, Read Routine (OP Routine) 11/15/2024 11:19 AM CDT Acute bilateral ankle pain RHEUMATOID FACTOR Routine 11/15/2024 10: 42 AM CDT Polyarthralgia DEXA AXIAL SKELETON BONE DENSITY 1 OR MORE SITES Schedule Routine, Read Routine (OP Routine) 11/15/2024 7:54 AM CDT Current chronic use of systemic steroids SCREENING MAMMOGRAM BILATERAL W TAI Schedule Routine, Read Routine (OP Routine) 10/17/2023 12:59 PM CDT Encounter for screening mammogram for breast cancer STOOL DNA COLOGUARD Routine 09/30/2023 1:30 PM CDT Screening for colorectal cancer from Last 3 Months or Most Recently Relevant to Health Maintenance Results * XR Knee Bilateral 3 Views (11/15/2024 11:19 AM CDT) Anatomical Region Laterality Modality Lower Extremities, Knee Bilateral Computed Radiography 11/16/2024 9:17 PM CDT Narrative 11/16/2024 9:20 PM CDT EXAM DESCRIPTION: 1. XR ANKLE RIGHT 3 OR MORE VIEWS; 2. XR ANKLE LEFT 3 OR MORE VIEWS; 3. XR KNEE BILATERAL 3 VIEWS REASON FOR STUDY: bilateral ankle pain x1 month bilateral knee pain x1 month Recently diagnosed with Pleasants's and Dyer's. No trauma, bilateral ankle and knee pain x 1 month. FINDINGS: Three views each ankle and three views each knee submitted without comparison. Knees: No erosions. No acute fracture. Alignment is normal. The joint spaces are normal. Trace knee effusions. Ankles: No acute fracture. The ankle joint space and mortise appear normal. No evidence of an ankle effusion. No erosions. IMPRESSION: 1. No radiographic evidence of inflammatory arthritis. 2. Trace bilateral knee effusions. THIS IS AN ELECTRONICALLY VERIFIED FINAL REPORT 11/16/2024 9:20 PM - Electronically signed by Godfrey Santamaria M.D. MF: KEVIN Report ID: [id number] Reading Location: [id number] Procedure Note Godfrey Santamaria MD - 11/16/2024 EXAM DESCRIPTION: 1. XR ANKLE RIGHT 3 OR MORE VIEWS; 2. XR ANKLE LEFT 3 OR MORE VIEWS; 3. XR KNEE BILATERAL 3 VIEWS REASON FOR STUDY: bilateral ankle pain x1 month bilateral knee pain x1 month Recently diagnosed with Pleasants's and Renetta's. No trauma, bilateralankle and knee pain x 1 month. FINDINGS: Three views each ankle and three views each knee submittedwithout comparison. Knees: No erosions. No acute fracture. Alignment is normal. The joint spacesare normal. Trace knee effusions. Ankles: No acute fracture. The ankle joint space and mortise appear normal. No evidence of an ankle effusion. No erosions. IMPRESSION: 1. No radiographic evidence of inflammatory arthritis. 2. Trace bilateral knee effusions. THIS IS AN ELECTRONICALLY VERIFIED FINAL REPORT 11/16/2024 9:20 PM - Electronically signed by Godfrey Santamaria M.D. MF: KEVIN Report ID: [id number] Reading Location: [id number] Dinorah PARRISH IMNelsy XR PROCEDURES Final R esult * XR Ankle Right 3+ Vw (11/15/2024 11:19 AM CDT) Anatomical Region Laterality Modality Lower Extremities, Ankle Right Compute d Radiography 11/16/2024 9:17 PM CDT Narrative 11/16/2024 9:20 PM CDT EXAM DESCRIPTION: 1. XR ANKLE RIGHT 3 OR MORE VIEWS; 2. XR ANKLE LEFT 3 OR MORE VIEWS; 3. XR KNEE BILATERAL 3 VIEWS REASON FOR STUDY: bilateral ankle pain x1 month bilateral knee pain x1 month Recently diagnosed with Pleasants's and Renetta's. No trauma, bilateral ankle and knee pain x 1 month. FINDINGS: Three views each ankle and three views each knee submitted without comparison. Knees: No erosions. No acute fracture. Alignment is normal. The joint spaces are normal. Trace knee effusions. Ankles: No acute fracture. The ankle joint space and mortise appear normal. No evidence of an ankle effusion. No erosions. IMPRESSION: 1. No radiographic evidence of inflammatory arthritis. 2. Trace bilateral knee effusions. THIS IS AN ELECTRONICALLY VERIFIED FINAL REPORT 11/16/2024 9:20 PM - Electronically signed by Godfrey Santamaria M.D. MF: KEVIN Report ID: [id number] Reading Location: [id number] Procedure Note Godfrey Santamaria MD - 11/16/2024 EXAM DESCRIPTION: 1. XR ANKLE RIGHT 3 OR MORE VIEWS; 2. XR ANKLE LEFT 3 OR MORE VIEWS; 3. XR KNEE BILATERAL 3 VIEWS REASON FOR STUDY: bilateral ankle pain x1 month bilateral knee pain x1 month Recently diagnosed with Nikolai's and Renetta's. No trauma, bilateralankle and knee pain x 1 month. FINDINGS: Three views each ankle and three views each knee submittedwithout comparison. Knees: No erosions. No acute fracture. Alignment is normal. The joint spacesare normal. Trace knee effusions. Ankles: No acute fracture. The ankle joint space and mortise appear normal. No evidence of an ankle effusion. No erosions. IMPRESSION: 1. No radiographic evidence of inflammatory arthritis. 2. Trace bilateral knee effusions. THIS IS AN ELECTRONICALLY VERIFIED FINAL REPORT 11/16/2024 9:20 PM - Electronically signed by Godfrey Santamaria M.D. MF: KEVIN Report ID: [id number] Reading Location: [place] [address] Dinorah PARRISH IM XR PROCEDURES Final R esult * XR Ankle Left 3+ Vw (11/15/2024 11:19 AM CDT) Anatomical Region Laterality Modality Lower Extremities, Ankle Left Compute d Radiography 11/16/2024 9:17 PM CDT Narrative 11/16/2024 9:20 PM CDT EXAM DESCRIPTION: 1. XR ANKLE RIGHT 3 OR MORE VIEWS; 2. XR ANKLE LEFT 3 OR MORE VIEWS; 3. XR KNEE BILATERAL 3 VIEWS REASON FOR STUDY: bilateral ankle pain x1 month bilateral knee pain x1 month Recently diagnosed with Pleasants's and Dyer's. No trauma, bilateral ankle and knee pain x 1 month. FINDINGS: Three views each ankle and three views each knee submitted without comparison. Knees: No erosions. No acute fracture. Alignment is normal. The joint spaces are normal. Trace knee effusions. Ankles: No acute fracture. The ankle joint space and mortise appear normal. No evidence of an ankle effusion. No erosions. IMPRESSION: 1. No radiographic evidence of inflammatory arthritis. 2. Trace bilateral knee effusions. THIS IS AN ELECTRONICALLY VERIFIED FINAL REPORT 11/16/2024 9:20 PM - Electronically signed by Godfrey Santamaria M.D. MF: KEVIN Report ID: [id number] Reading Location: [id number] Procedure Note Godfrey Santamaria MD - 11/16/2024 EXAM DESCRIPTION: 1. XR ANKLE RIGHT 3 OR MORE VIEWS; 2. XR ANKLE LEFT 3 OR MORE VIEWS; 3. XR KNEE BILATERAL 3 VIEWS REASON FOR STUDY: bilateral ankle pain x1 month bilateral knee pain x1 month Recently diagnosed with Nikolai's and Dyer's. No trauma, bilateralankle and knee pain x 1 month. FINDINGS: Three views each ankle and three views each knee submittedwithout comparison. Knees: No erosions. No acute fracture. Alignment is normal. The joint spacesare normal. Trace knee effusions. Ankles: No acute fracture. The ankle joint space and mortise appear normal. No evidence of an ankle effusion. No erosions. IMPRESSION: 1. No radiographic evidence of inflammatory arthritis. 2. Trace bilateral knee effusions. THIS IS AN ELECTRONICALLY VERIFIED FINAL REPORT 11/16/2024 9:20 PM - Electronically signed by Godfrey Santamaria M.D. MF: KEVIN Report ID: [id number] Reading Location: [id number] Dinorah PARRISH IMG XR PROCEDURES Final R esult * Rheumatoid factor (11/15/2024 10:42 AM CDT) Rheumatoid factor, quant <10.0 <=15.0 IUnits/mL Blood 11/15/2024 10:4 2 AM CDT 11/15/2024 12:31 PM CDT Dinorah PARRISH LAB BLOOD ORDERABLES Ban l Result [facility] [id number] [facility] [place] [address] * Dexa Axial Skeleton Bone Density 1 or 2 Site (11/15/2024 7:54 AM CDT) Anatomical Region Laterality Modality Body N/A Mammography 11/16/2024 3:43 PM CDT Narrative 11/16/2024 3:44 PM CDT EXAM DESCRIPTION: DEXA AXIAL SKELETON BONE DENSITY 1 OR MORE SITES REASON FOR STUDY: 54 y/o year old F with given history of: 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 CLINICAL INFORMATION: Current height: 70 inches Maximum height: 71 inches Weight: 216 pounds Risk factors: Postmenopausal, adult fracture, steroid use COMPARISON: None available FINDINGS: AP LUMBAR SPINE L1-L4: Total BMD is 0.987 g/cm2 T-score is -0.5 LEFT HIP: Total BMD is 1.074 g/cm2 T-score is 1.1 Femoral neck BMD is 0.783 g/cm2 T-score is -0.6 FRAX: FRAX not reported due to T-scores of hip, femoral neck and/or spine being at or above -1.0 (Normal). IMPRESSION: 1. Normal bone mass. REFERENCE: Bone mineral density: T-Score: Normal (T-score above or = -1.0) Low bone mass (T-score between -1.0 and -2.5) replaces the previously used term osteopenia Osteoporosis (T-score = or below -2.5) Z-Score: Within the expected range for age (Z-score above -2.0) Below the expected range for age (Z-score is -2.0 or below) Please see below follow up recommendations. Medical evaluation for secondary causes of low bone mineral density may be appropriate. FRAX is a World Health Organization validated fracture risk assessment tool that calculates a person's 10 year probability of a major osteoporosis related fracture and hip fracture. According to the National Osteoporosis Foundation guidelines, postmenopausal women and men age 50 or older with low bone mass and a 10 year probability of a major osteoporosis related fracture = or greater than 20% or a 10 year probability of a hip fracture = or greater than 3% should be considered for pharmacological treatment for the prevention of osteoporosis. For further information, including treatment recommendations, please refer to the 2019 ISCD Official Positions (http://www.iscd.org) and the NOF's Clinician's Guide to Prevention and Treatment of Osteoporosis (http://www.nof.org/professionals/clinical-guidelines) THIS IS AN ELECTRONICALLY VERIFIED FINAL REPORT 11/16/2024 3:44 PM - Electronically signed by Godfrey Santamaria M.D. 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 CLINICAL INFORMATION: Current height: 70 inches Maximum height: 71 inches Weight: 216 pounds Risk factors: Postmenopausal, adult fracture, steroid use COMPARISON: None available FINDINGS: AP LUMBAR SPINE L1-L4: Total BMD is 0.987 g/cm2 T-score is -0.5 LEFT HIP: Total BMD is 1.074 g/cm2 T-score is 1.1 Femoral neck BMD is 0.783 g/cm2 T-score is -0.6 FRAX: FRAX not reported due to T-scores of hip, femoral neck and/or spine beingat or above -1.0 (Normal). IMPRESSION: 1. Normal bone mass. REFERENCE: Bone mineral density: T-Score: Normal (T-score above or = -1.0) Low bone mass (T-score between -1.0 and -2.5) replaces thepreviously used term osteopenia Osteoporosis (T-score = or below -2.5) Z-Score: Within the expected range for age (Z-score above -2.0) Below the expected range for age (Z-score is -2.0 or below) Please see below follow up recommendations. Medical evaluation forsecondary causes of low bone mineral density may be appropriate. FRAX is a World Health Organization validated fracture risk assessmenttool that calculates a person's 10 year probability of a major osteoporosisrelated fracture and hip fracture. According to the National OsteoporosisFoundation guidelines, postmenopausal women and men age 50 or older with low bonemass and a 10 year probability of a major osteoporosis related fracture = or greater than 20% or a 10 year probability of a hip fracture = or greaterthan 3% should be considered for pharmacological treatment for the preventionof osteoporosis. For further information, including treatment recommendations, please referto the 2019 ISCD Official Positions (http://www.iscd.org) and the NOF's Clinician's Guide to Prevention and Treatment of Osteoporosis (http://www.nof.org/professionals/clinical-guidelines) THIS IS AN ELECTRONICALLY VERIFIED FINAL REPORT 11/16/2024 3:44 PM - Electronically signed by Godfrey Santamaria M.D. MF: [email or web address] Report ID: [id number] Reading Location: [place] [address] Sarbjit Wilkerson MD IMG DXA PROCEDURES Final Result * Screening Mammogram Bilateral W Tai (10/17/2023 12:59 PM CDT) Anatomical Region Laterality Modality Breast Bilateral Mammography Impressions 10/24/2023 1:50 PM CDT BI-RADS ATLAS category (overall): 1 - Negative There is no mammographic evidence of malignancy. A 1 year screening mammogram is recommended. The patient has been or will be contacted. We recommend annual screening mammography for women at average risk of breast cancer beginning at age 40, based on guidelines of the [employer] [place] [employer] (ACR Practice Parameter for the Performance of Screening and Diagnostic Mammography) and [place] [employer]. For women with and elevated risk of breast cancer, please refer to the ACR Practice Parameter for specific screening recommendations. The patient will be entered into a reminder system with a target due date of 1 year for her next screening exam. Narrative 10/24/2023 1:50 PM CDT Screening Mammogram Bilateral W Tai: 10/17/23 The study was acquired using full field digital technology and interpreted from soft copy. 2D digital mammographic views, as well as 3D digital tomosynthesis were performed in the CC and MLO projections. CLINICAL: Encounter for screening mammogram for breast cancer. No relevant medical history has been documented for this patient. History of breast cancer in Neg Hx. COMPARISONS: 02/14/2014 Breast Imaging Diagnostic Outside Reference BREAST TISSUE: The breasts are almost entirely fatty. FINDINGS: There is no new suspicious finding in either breast on mammogram. Dinorah Jason FRANCOIS IMG MAMMO PROCEDURES Ban l Result * Stool DNA - Cologuard (09/30/2023 1:30 PM CDT) Stool DNA - Cologuard Negative Negative [employer] (CLIA #:[id number]) Comment: NEGATIVE TEST RESULT. A negative Cologuard result indicates a low likelihood that a colorectal cancer (CRC) or advanced adenoma (adenomatous polyps with more advanced pre-malignant features) is present. The chance that a person with a negative Cologuard test has a colorectal cancer is less than 1 in 1500 (negative predictive value >99.9%) or has an advanced adenoma is less than 5.3% (negative predictive value 94.7%). These data are based on a prospective cross-sectional study of 10,000 individuals at average risk for colorectal cancer who were screened with both Cologuard and colonoscopy. (Mahin Lim. et al, N Engl J Med 2014;370(14):8293-9597) The normal value (reference range) for this assay is negative. COLOGUARD RE-SCREENING RECOMMENDATION: Periodic colorectal cancer screening is an important part of preventive healthcare for asymptomatic individuals at average risk for colorectal cancer. Following a negative Cologuard result, the [place] [employer] Society and U.S. Multi-Society Task Force screening guidelines recommend a Cologuard re-screening interval of 3 years. References: [place] [employer] Society Guideline for Colorectal Cancer Screening: https://www.cancer.org/cancer/xbckx-ivlqks-dnigps/sbmrhsdhq-iyimqvqoz-mjxllvv/ac s-rec ommendations.html.; Dez NEGRON, Nola YOUNG, Kacie MARTINEZ, Colorectal Cancer Screening: Recommendations for Physicians and Patients from the U.S. Multi-Society Task Force on Colorectal Cancer Screening , Am J Gastroenterology 2017; 112:9194-5640. TEST DESCRIPTION: Composite algorithmic analysis of stool DNA-biomarkers with hemoglobin immunoassay. Quantitative values of individual biomarkers are not reportable and are not associated with individual biomarker result reference ranges. Cologuard is intended for colorectal cancer screening of adults of either sex, 45 years or older, who are at average-risk for colorectal cancer (CRC). Cologuard has been approved for use by the U.S. FDA. The performance of Cologuard was established in a cross sectional study of average-risk adults aged 50-84. Cologuard performance in patients ages 45 to 49 years was estimated by sub-group analysis of near-age groups. Colonoscopies performed for a positive result may find as the most clinically significant lesion: colorectal cancer [4.0%], advanced adenoma (including sessile serrated polyps greater than or equal to 1cm diameter) [20%] or non- advanced adenoma [31%]; or no colorectal neoplasia [45%]. These estimates are derived from a prospective cross-sectional screening study of 10,000 individuals at average risk for colorectal cancer who were screened with both Cologuard and colonoscopy. (Mahin Montalvo al, N Engl J Med 2014;370(14):6223-9546.) Cologuard may produce a false negative or false positive result (no colorectal cancer or precancerous polyp present at colonoscopy follow up). A negative Cologuard test result does not guarantee the absence of CRC or advanced adenoma (pre-cancer). The current Cologuard screening interval is every 3 years. ([place] [employer] Society and U.S. Multi-Society Task Force). Cologuard performance data in a 10,000 patient pivotal study using colonoscopy as the reference method can be accessed at the following location: www.[employer].Limos.com/results. Additional description of the Cologuard test process, warnings and precautions can be found at www.[employer].com. Stool 09/30/2023 1:30 PM CDT 10/01/2023 8:38 PM CDT Dinorah [facility] BODY FLUIDS AND STOOL S ORDERABLES Final Result [employer] (CLIA #:[id number]) [address] [place] [address] from Last 3 Months or Most Recently Relevant to Health Maintenance Insurance [facility] Advance Directives For more information, please contact: [phone] * Full Code (Latest Code Status on File) Date Activated Date Inactivated Comments 09/03/2024 6:07 PM 09/06/2024 12:57 AM * Full Code Date Activated Date Inactivated Comments 01/24/2023 4:06 PM 01/25/2023 7:56 PM Care Teams Marketing Planner Relationship Specialty Start Date End Date Dinorah Jason PA [address] [place] [address] PCP - General Family Medicine 08/19/24 Stanislav Montalvo MD [address] [place] [address] Consulting Physician Family Medicine 05/08/20 Arturo Gross MD [address] [place] [address] Consulting Physician Cardiovascular Disease 01/25/23 Alexandru Archuleta MD [address] [place] [address] Consulting Physician Rheumatology 01/07/25
[2025-01-19 11:49] VITALS: BP 151/99; PULSE 80; RESP 18; TEMP 36.6; O2SAT 99
--- NOTE | 2025-01-19 11:49 | ED.DENTAL ---
HPI - Dental/Oral General Stated complaint: Face pain Related Data Allergies Allergy/AdvReac Type Severity Reaction Status Date / Time hydrocodone Allergy Mild Verified 12/20/14 14:47 iodine Allergy Mild Verified 12/20/14 14:47 acetaminophen Allergy Unknown Verified 12/20/14 14:47 OXYCODONE HCL Allergy Unknown Uncoded 12/20/14 14:47 Discharge Plan Discharge Patient Language: Tamazight Follow-up/Referrals: Eren,FRANCOIS Andrade [Primary Care Provider, Unknown]
--- NOTE | 2025-01-19 11:55 | ED_ITS ---
HPI - URI/Sore Throat General Chief Complaint: Unspecified Stated Complaint: Face pain Time Seen by Provider: 01/19/25 11:56 Source: patient Mode of arrival: ambulatory Limitations: no limitations History of Present Illness HPI Narrative: Yelena is a 54-year-old female patient presenting to the clinic today with complaints facial pain x 1 days. She reports she has a history of parotiditis that occurred last year around [place] time. States that both of her parotid glands became swollen, painful, and caused her to lose her hearing. She reports she started having some swelling in her right parotid gland last night now feels as though both glands are swollen. States that she had decreased hearing and shinto this morning and this prompted her to come in to the [facility] to be evaluated. Took Benadryl last night to see if that would alleviate her symptoms. States that she had blood work and scans done last year to determine the cause and there was no etiology found at that time. Stated they even test her for months even though she was vaccinated and that was negative. 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 She denies any fevers, chills, or body aches. Denies any shortness of breath or chest pain. Denies any difficulty swallowing. No hoarseness to her voice. Denies any dental pain, sore throat, or ear pain. Related Data Home Medications ?Medication ?Instructions ?Recorded ?Confirmed ?Last Taken ?Type celecoxib 200 mg capsule mg 01/19/25 Unknown History cholecalciferol (vitamin D3) 1,250 01/19/25 Unknown History mcg (50,000 unit) capsule famotidine 20 mg tablet mg 01/19/25 Unknown History hydrocortisone 10 mg tablet mg 01/19/25 Unknown Histo ry losartan 100 mg tablet mg 01/19/25 Unknown History losartan 50 mg-hydrochlorothiazide tablet 01/19/25 Un known History 12.5 mg tablet Allergies Allergy/AdvReac Type Severity Reaction Status Date / Time hydrocodone Allergy Mild Verified 12/20/14 14:47 iodine Allergy Mild Verified 12/20/14 14:47 acetaminophen Allergy Unknown Verified 12/20/14 14:47 OXYCODONE HCL Allergy Unknown Uncoded 12/20/14 14:47 Review of Systems Review of Systems: Pertinent positives per HPI. Patient denies any fever, chills, rash, headache, visual changes, dizziness, cough, runny nose, sore throat, shortness of breath, chest pain, palpitations, nausea, vomiting, diarrhea, constipation, abdominal pain, or any urinary issues. PMFSH Comments At the time of my signature, I reviewed and agree with the nursing past medical, surgical, social, and family history. There is no relevant family history pertinent to the patient complaint. Exam Narrative: General: Well-developed, obese, in no apparent distress Head: Normocephalic, atraumatic Eyes: Pupils equally round and reactive to light bilaterally, EOM intact, sclera and conjunctive clear, no discharge, lids normal Ears: Bilateral cerumen impaction, ear irrigation performed. TMs intact and clear, ear canals clear, no drainage, grossly hearing normal. Nose: Nares patent, no discharge, no inflammation, no sinus tenderness. Mouth: Oropharynx without lesions or masses, good dentition, MMM. Bilateral parotid swelling and tenderness to palpation. No erythema, induration, or palpable mass or abscess Neck: Supple, trachea midline, no enlargement of anterior or posterior cervical nodes, no thyroid masses or goiter palpable. Cardio: Regular rate and rhythm, s1 and s2 normal, no murmur appreciated. Resp: Clear to auscultation bilaterally anteriorly and posteriorly, no rhonchi, rales, wheezing or rubs Course Course Emergency Course: Portions of this record may have been created with voice recognition software. Level of Care: Express Care Visit Vital Signs Vital signs: Vital Signs Temperature 36.6 C 01/19/25 11:49 Pulse Rate 80 01/19/25 11:49 Respiratory Rate 18 01/19/25 11:49 Blood Pressure 151/99 H 01/19/25 11:49 Pulse Oximetry 01/19/25 11:49 Oxygen Delivery Room Air 01/19/25 11:49 Temperature 36.6 C 01/19/25 11:49 Pulse Rate 80 01/19/25 11:49 Respiratory Rate 18 01/19/25 11:49 Blood Pressure 151/99 H 01/19/25 11:49 Pulse Oximetry 01/19/25 11:49 Oxygen Delivery Room Air 01/19/25 11:49 Vital signs reviewed Procedures Ear Wax Removal Both Ears: Ear Wax Removal Date: 01/19/25 Cerumenolytic Used: 5-10% Sodium Bicarb solution Results: Re-examined: cerumen removed completely TM Examination: TM(s) intact, normal appearance Ear Canal Exam: atraumatic Patient Tolerated Procedure: well and no complications Complications: no problems Technique: ear canal irrigated and ear canal curetted Additional Comments: Verbal consent obtained for ear irrigation. Risk and benefits explained and patient voiced understanding. Ear irrigation performed using an elephant ear and spray water bottle. Mixture of 1/2 peroxide 1/2 water used to irrigate ear canal. Cerumen impaction cleared and TM visualized without redness. Grossly hearing normal. Patient tolerated procedure well MDM - URI/Sore Throat MDM Narrative Medical decision making narrative: At the time of visit patient is resting comfortably on the exam table. Patient appears to be nontoxic. Complaints facial pain x 1 days. She reports she has a history of parotiditis that occurred last year around [place] time. States that both of her parotid glands became swollen, painful, and caused her to lose her hearing. She reports she started having some swelling in her right parotid gland last night now feels as though both glands are swollen. States that she had decreased hearing and shinto this morning and this prompted her to come in to the [facility] to be evaluated. Patient took Benadryl last night to see if this would alleviate her symptoms. States that she had blood work and scans done last year to determine the cause and there was no etiology found at that time. Stated they even test her for months even though she was vaccinated and that was negative. 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 She denies any fev ers, chills, or body aches. Denies any shortness of breath or chest pain. Denies any difficulty swallowing. No hoarseness to her voice. Denies any dental pain, sore throat, or ear pain. On exam patient has bilateral cerumen impaction and the bilateral tenderness and swelling over the parotid glands. No sign of infection or dental infection. Lung sounds are clear and heart rates regular rate rhythm. Discussed patient's case with Dr. Davenport- collaborating provider. Ear irrigation was ordered. Procedures: Ear irrigation was performed to bilateral ear canal successfully in the clinic. Plan: I suspect patient has cerumen impaction/parotiditis. Ear irrigation was performed in the clinic successfully. Will place patient on Augmentin and have patient follow-up with PCP/ENT. Call office tomorrow to schedule appointment. Supportive measures were discussed with the patient and they voiced understanding discharge instructions and agrees to treatment plan. Return precautions reviewed Differential Diagnosis Differential diagnosis: Likely upper respiratory infection, otitis media, sinusitis, viral infection, pharyngitis and other (Parotiditis, cerumen impaction, dental infection) Discharge Plan Discharge Clinical Impression: Bilateral impacted cerumen, Acute parotitis Patient Disposition: Home Condition: Stable Instructions: Antibiotic Form, Mumps in Adults (ED) Additional Instructions: Ear irrigation was performed successfully in the clinic today. Take prescription medications only as prescribed-Augmentin Increase fluids and stay well hydrated May take Tylenol or motrin as directed on bottle for pain/fever Go to the ED if you develop a worsening in your condition- high fever not controlled by Tylenol or Motrin, dehydration, weakness, lethargy, shortness of breath, or chest pain. Follow up with your PCP/ENT call office tomorrow to schedule an appointment. Go to the ED if symptoms worsen- you develop fever, worsening pain, difficulty swallowing, difficulty breathing, shortness breath, or chest pain Patient Language: Serbian Prescriptions: New amoxicillin-pot clavulanate 875-125 mg tablet 1 tablet PO Q12H 10 Days Qty: 20 0RF No Action celecoxib 200 mg capsule famotidine 20 mg tablet hydrocortisone 10 mg tablet losartan-hydrochlorothiazide 50-12.5 mg tablet losartan 100 mg tablet cholecalciferol (vitamin D3) 1,250 mcg (50,000 unit) capsule Follow-up/Referrals: Eren,FRANCOIS Andrade [Primary Care Provider, Unknown] Time of Disposition: 12:52 Quality NIHSS Nursing Documentation ED NIHSS nursing documentation: reviewed/agree
== END 2025-01-19 13:00 | disposition home or self-care (01) ==
PROVIDERS: Emergency Provider Nurse Practitioner Family; PCP Physician Assistant
DX: H61.23 Impacted cerumen, bilateral (principal); K11.21 Acute sialoadenitis
CPT/HCPCS: 69209; 99213; A9270; G0463